=== PATIENT | male | born 1980 | race African-American/Black ===

== ENCOUNTER 2016-09-29 19:49 | Emergency (ER) | payer BC ==
[~2016-09-29] VITALS: Ht 182.9 cm; Wt 88.0 kg
[2016-09-29 19:50] VITALS: BP 112/76; PULSE 81; RESP 16; TEMP 98; O2SAT 99
[2016-09-29] MEDS ORDERED: CEPH-460 PO (20:29)
[2016-09-29] MEDS ORDERED: BACT800T5 PO (20:29)
[2016-09-29] MEDS ORDERED: CEPHALEXIN MONOHYDRATE 500 MG CAP PO ONE (20:30)
[2016-09-29] MEDS ORDERED: SULFAMETHOXAZOLE-TRIMETHOPRIM DS 800-160 MG TAB PO ONE (20:30)
--- NOTE | 2016-09-29 20:33 | PD ---
HPI Chief Complaint: Lump, Cyst, Hernia Time Seen by Provider: 20:18 Travel History International Travel<30 days: No Contact w/Intl Traveler<30days: No Traveled to known affect area: No History of Present Illness HPI 36-year-old male presents for evaluation of area of soft tissue swelling and tenderness to the left preauricular area of the face. Symptoms started 2 weeks ago and have gradually worsened since then. He feels like it may be an ingrown hair. He has a pain associated with it, throbbing, sharp, worse with palpation. No fevers or chills. No ear pain, no sore throat or neck pain. No other complaints. PFSH Past Medical History Medical History: Denies Significant Hx Past Surgical History Surgical History: No Previous Surgery Social History Alcohol Use: Yes Tobacco Use: Yes Substance Use: No Allergies-Medications (Allergen,Severity, Reaction): Coded Allergies: No Known Allergies (Unverified , 09/29/16) Reported Meds & Prescriptions Reported Meds & Active Scripts Active Keflex (Cephalexin) 500 Mg Cap 500 Mg PO Q8H Bactrim DS (Sulfamethoxazole-Trimethoprim) 800-160 Mg Tab 1 Tab PO BID Review of Systems General / Constitutional: No: Fever, Chills Skin: Positive Other (left-sided facial soft tissue swelling, tenderness) Physical Exam Narrative GENERAL: Well-developed well-nourished male in no acute distress SKIN: Warm and dry. 1 cm preauricular abscess left side of face. Tender to palpation. No drainage. HEAD: Atraumatic. Normocephalic. EYES: Pupils equal and round. No scleral icterus. No injection or drainage. ENT: No nasal bleeding or discharge. Mucous membranes pink and moist. NECK: Trachea midline. No JVD. No lymphadenopathy Data Data Last Documented VS Vital Signs Date Time Temp Pulse Resp B/P Pulse Ox O2 Delivery O2 Flow Rate FiO2 09/29/16 19:50 98.0 81 16 112/76 99 Orders Wound Culture And Gram Stain (09/29/16 20:22) Sulfamet-Trimeth Ds 800-160 Mg (Bactrim (09/29/16 20:30) Cephalexin (Keflex) (09/29/16 20:30) MDM Medical Decision Making Medical Screen Exam Complete: Yes Emergency Medical Condition: Yes Medical Record Reviewed: Yes Differential Diagnosis Abscess, infected cyst, cellulitis Narrative Course Examination reveals a small left-sided facial abscess. A needle aspiration was performed. Wound culture was performed. The patient is being discharged with Bactrim and Keflex. Procedures Procedure Narrative Abscess needle aspiration: The area was prepped with Betadine, punctured with a 18-gauge needle. Purulent drainage was expressed. Wound culture performed. Wound care provided. Patient tolerated procedure well. Diagnosis Primary Impression: Facial abscess Additional Instructions: Warm compresses several times a day 10 minutes at a time. Antibiotics as prescribed. Return for new or worsening symptoms. Med/Other Pt SpecificInfo: Prescription(s) given, Wound Care Scripts Cephalexin (Keflex)500 Mg [id number] Mg PO Q8H #30 CAP Ref 0 Prov:Sailaja Lomeli DO 09/29/16 Sulfamethoxazole-Trimethoprim (Bactrim DS)800-160 Mg Tab1 Tab PO BID #20 TAB Ref 0 Prov:Sailaja Lomeli DO 09/29/16 Disposition: 01 DISCHARGE HOME Condition: Stable Rigoberto Ledbetter Sep 29, 2016 20:33
== END 2016-09-29 21:32 | disposition home or self-care (01) ==
LOC: NEPB 19:49
DX: L02.01 Cutaneous abscess of face (principal)
CPT/HCPCS: 10160